=== PATIENT | female | born 1960 | race Caucasian/White ===

== ENCOUNTER 2016-12-19 13:23 | Emergency (ER) | payer OTHER ==
[~2016-12-19] VITALS: Ht 162.6 cm; Wt 63.5 kg
[2016-12-19] MEDS ORDERED: CLONAZEPAM1 M2 PO (14:09)
[2016-12-19] MEDS ORDERED: LAMOTRIGINE100 M2 PO (14:10)
[2016-12-19] MEDS ORDERED: DULOXETINE HCL60 MG PO (14:11)
[2016-12-19] MEDS ORDERED: OXCARBAZEPINE300 M1 PO (14:12)
--- NOTE | 2016-12-19 14:16 | ED GENERAL ADULT ---
History of Present Illness General Chief Complaint: Dizziness Stated Complaint: "I WAS DIZZY THIS MORNING" Source: patient, family Exam Limitations: no limitations Vital Signs & Intake/Output Vital Signs & Intake/Output Vital Signs Date Time Temp Pulse Resp B/P Pulse O2 O2 Flow FiO2 Ox Delivery Rate 12/19 1613 86 16 127/82 98 Room Air 12/19 1452 97.1 74 18 128/85 99 Room Air 12/19 1331 98.0 89 20 136/92 96 Room Air ED Intake and Output 12/20 0000 12/19 1200 Intake Total Output Total Balance Patient 140 lb Weight Allergies Coded Allergies: Sulfa (Sulfonamide Antibiotics) (UNKNOWN 12/19/16) Reconcile Medications Clonazepam 1 MG TABLET 1 TAB PO BIDP PRN ANXIETY (Reported) Duloxetine HCl 60 MG CAPSULE.DR 1 CAP PO DAILY SEIZURE (Reported) Lamotrigine 100 MG TABLET 3 TAB PO BID SEIZURE (Reported) Oxcarbazepine 300 MG TABLET 1 TAB PO BID SEIZURE (Reported) Triage Note: PT STATES SHE WAS IN THE [facility] AND THEN WAS GOING TO GO TO [place] [employer] [place] AND SHE STARTED SEEING BRIGHT LIGHT FLASHING. STATES SHE WAS DIZZY THIS MORNING BUT HER MEDICINE MAKES HER DIZZY. STATES SHE HAS HX OF SEIZURES, LAST ONE 2 WEEKS AGO.STATES SHE TOOK ALL OF HER MEDS TODAY Triage Nurses Notes Reviewed? yes Onset: Gradual Duration: minute(s): (2) Timing: recent history Injury Environment: home Severity: moderate Severity Numbers: 6 No Modifying Factors: none HPI: Patient is a 56-year-old female with history of seizure disorder presenting to the emergency department with chief complaint of a seizure this morning. She reports that she was sitting down when the seizure started. It's usually triggered by bright lights. It lasted a minute or 2 and then resolved. Per family member who was with her she was postictal for several minutes and was confused and then slowly came out of it. Right now patient feels fatigued. Denies any visual changes. No urinary incontinence. Denies any falls or head injury. She is currently living in [place], her neurologist is in [place]. They have been changing her dose of Lamictal secondary to visual changes since starting it 4 months ago. Denies any abdominal pain. No back pain. No numbness or tingling. Denies any current headaches or confusion. (PREET TAYLOR) Past History Travel History Traveled to [place] past 21 day No Medical History Any Pertinent Medical History? see below for history Neurological: EPILEPSY Psychiatric: depression Surgical History Surgical History: non-contributory Psychosocial History What is your primary language Urdu Tobacco Use: Never used ETOH Use: occasional use Illicit Drug Use: denies illicit drug use Family History Hx Contributory? No (PREET TAYLOR) Review of Systems Review of Systems Constitutional: Reports: malaise. Comments Review of systems: See HPI, All other systems negative. Constitutional, no chills fever or weight loss HEENT: No visual changes no sore throat no congestion Cardiovascular: No chest pain ,palpitation , orthopnea or ankle swelling Skin, no jaundice no rashes Respiratory: No dyspnea cough sputum or hemoptysis GI: No nausea no vomiting : No dysuria No hematuria Muscle skeletal: no back pain, no neck pain, Neurologic: No numbness no headache Psych: No stress anxiety or depression,. Heme/endocrine: No bruising no bleeding no polyuria or polydipsia Immunology: No splenectomy or history of AIDS (PREET TAYLOR) Physical Exam Physical Exam General Appearance: well developed/nourished, no apparent distress, alert, awake , comfortable Comments: Well-developed well-nourished person in no acute distress HEENT: Normal EENT exam, extraocular motion intact, no nystagmus. Pupils equally round and reactive to light and accommodation. Nose is atraumatic. External auditory canal and Tympanic membranes clear. Pharynx normal. No swelling or edema. Neck: Supple, no lymphadenopathy, normal range of motion without pain or tenderness Back: Nontender, no CVA tenderness. Full range of motion Cardiovascular: Regular rate and rhythms no murmurs rubs or gallops, normal JVP Respiratory: Chest nontender. No respiratory distress.breath sounds clear to auscultation bilaterally Abdomen: Soft, nontender nondistended, no appreciable organomegaly. Normal bowel sounds. No ascites Extremity: No edema, full range of motion of all extremities without difficulty or pain. Muscular strength is 5 out of 5 in all extremities.. Study Coordinator strength is equal and symmetric bilaterally. Neuro: Alert oriented x3, motor sensory normal, cranial nerves II through XII grossly intact. Cerebellar testing is unremarkable. Skin: No appreciable rash on exposed skin, skin is warm and dry. Psych: Mood and affect is normal, memory and judgment is normal. Core Measures ACS in differential dx? No CVA/TIA Diagnosis: No Severe Sepsis Present: No Septic Shock Present: No (PREET TAYLOR) Progress Differential Diagnoses I considered the following diagnoses in my evaluation of the patient: Seizure, medication noncompliance, dehydration, electrolyte abnormality Plan of Care: Orders Procedure Date/time Status Add-on Test (ER Only) 12/19 1458 Active Telemetry/Body Technician/Painter 12/19 143 Active URINE DRUG SCREEN FOR ER ONLY 12/19 1436 Complete URINALYSIS 12/19 1436 Complete PROLACTIN 12/19 143 Complete COMPREHENSIVE METABOLIC PANEL 12/19 143 Complete CBC WITHOUT DIFFERENTIAL 12/19 143 Complete EKG 12/19 1351 Active Laboratory Tests 12/19/16 1539: Lamotrigine Pending 12/19/16 1523: Urine Opiates Screen < 100.00, Methadone Screen 45, Barbiturate Screen < 60, Ur Phencyclidine Scrn < 6.00, Amphetamines Screen < 100, U Benzodiazepines Scrn < 85, Urine Cocaine Screen < 50, Urine Cannabis Screen < 5.00, Urine Color STRAW, Urine Clarity CLEAR, Urine pH 7.5, Ur Specific [place] 1.015, Urine Protein NEG, Urine Ketones NEG, Urine Nitrite NEG, Urine Bilirubin NEG, Urine Urobilinogen 0.2, Ur Leukocyte Esterase LARGE H, Ur Microscopic SEDIMENT EXAMINED, Urine RBC RARE, Urine WBC 1-3 H, Ur Epithelial Cells FEW, Urine Hemoglobin TRACE-INTACT, Urine Glucose NEG 12/19/16 1440: Anion Gap 11, Estimated GFR > 60, BUN/Creatinine Ratio 18.6, Glucose 86, Calcium 9.4, Total Bilirubin 0.4, AST 30, ALT 43, Alkaline Phosphatase 96, Total Protein 7.0, Albumin 4.4, Globulin 2.6, Albumin/Globulin Ratio 1.7, Prolactin 10.2, CBC w Diff NO MAN DIFF REQ, RBC 4.33, MCV 93.2, MCH 31.5 H, RDW 13.1, MPV 7.4, Gran % 64.4, Lymphocytes % 26.9, Monocytes % 6.6, Eosinophils % 1.6, Basophils % 0.5, Absolute Granulocytes 3.3, Absolute Lymphocytes 1.4, Absolute Monocytes 0.3, Absolute Eosinophils 0.1, Absolute Basophils 0, PUBS MCHC 33.8 Initial ED EKG: NSR (72 bpm) Comments: 12/19/2016 4:05:31 PM patient is well appearing in acute distress. No seizures while here in the emergency department. Vitals are stable. She'll follow up with neurology and continue medications. Discussed the Nieves Marie MD and she agrees with plan. (PREET TAYLOR) Departure Departure Disposition: HOME OR SELF CARE Condition: Stable Clinical Impression Primary Impression: Seizure Referrals: THEE SANTANA,JUSTINE LUNA MD,HEENA GREEN MD,ELIZABETH BILL MD,LYNDON (PCP/Family) Additional Instructions: Follow-up with your primary care physician call to make an appointment. Also call the number on the back of your insurance card and they will inform you of neurologists in the area that take [place]. Urine given a couple referrals here, I am unsure what insurance intake. Continue all medications as prescribed. Departure Forms: Customer Survey General Discharge Information (PREET TAYLOR) PA/SMALL ANIMAL VETERINARIAN Co-Sign Statement Statement: ED Attending supervision documentation- [X] I saw and evaluated the patient. I have also reviewed all the pertinent lab results and diagnostic results. I agree with the findings and the plan of care as documented in the PA's/SMALL ANIMAL VETERINARIAN's documentation. [X] I have reviewed the ED Record and agree with the PA's/SMALL ANIMAL VETERINARIAN's documentation. [] Additions or exceptions (if any) to the PAs/SMALL ANIMAL VETERINARIAN's note and plan are summarized below: [] (ANNALISA SANTANA,NIEVES) Critical Care Note Critical Care Note Critical Care Time: non-applicable (PREET TAYLOR)
[2016-12-19 14:51] LABS: ABSOLUTE BASOPHIL COUNT 0 /CUMM (0.0-0.2); ABSOLUTE EOSINOPHIL COUNT 0.1 /CUMM (0.0-0.7); ABSOLUTE GRANULOCYTE CT 3.3 /CUMM (1.4-6.5); ABSOLUTE LYMPH COUNT 1.4 /CUMM (1.2-3.4); ABSOLUTE MONOCYTE COUNT 0.3 /CUMM (0.10-0.60); BASOPHIL % 0.5 % (0.0-2.0); EOSINOPHIL % 1.6 % (0-5); GRANULOCYTE % 64.4 % (42.2-75.2); HEMATOCRIT 40.3 % (37-47); MEAN CORPUSCULAR HGB 31.5 PG (27.0-31.0); MEAN CORPUSCULAR HGB CONC 33.8 G/DL (33.0-37.0); MEAN CORPUSCULAR VOLUME 93.2 FL (81.0-99.0); MEAN PLATELET VOLUME 7.4 FL (7.4-10.4); PLATELET COUNT 255 /CUMM (130-400); RBC DISTRIBUTION WIDTH 13.1 % (11.5-14.5); RED BLOOD CELL CT 4.33 /CUMM (4.20-5.40); WHITE BLOOD CELL COUNT 5.1 /CUMM (4.8-10.8)
[2016-12-19 16:13] VITALS: BP 127/82
== END 2016-12-19 16:14 ==
LOC: ERH 13:23
PROVIDERS: Physician Assistant
DX: R56.9 Unspecified convulsions (principal)
CPT/HCPCS: 80299; 80307; 81001; 93005; 93010; 96374

== ENCOUNTER 2017-01-26 22:34 | Emergency (ER) | payer OTHER ==
[~2017-01-26 22:34] MED LIST: CLONAZEPAM1 M2 PO; DULOXETINE HCL60 MG PO; LAMOTRIGINE100 M2 PO; OXCARBAZEPINE300 M1 PO
--- NOTE | 2017-01-26 22:53 | ED GENERAL ADULT ---
History of Present Illness General Chief Complaint: General Adult Stated Complaint: BIBA FOR DIFF SWALLOWING Source: patient, family, EMS Exam Limitations: no limitations Vital Signs & Intake/Output Vital Signs & Intake/Output Vital Signs Date Time Temp Pulse Resp B/P Pulse O2 O2 Flow FiO2 Ox Delivery Rate 01/26 2253 98.0 80 16 98 Room Air Room Air Allergies Coded Allergies: Sulfa (Sulfonamide Antibiotics) (UNKNOWN - RASH? 01/26/17) Reconcile Medications Clonazepam 1 MG TABLET 1 TAB PO BIDP PRN ANXIETY (Reported) Duloxetine HCl 60 MG CAPSULE.DR 1 CAP PO DAILY SEIZURE (Reported) L.acidoph,Paracasei, B.lactis (Probiotic) (Unknown Strength) CAPSULE (Unknown Dose) PO DAILY PROBIOTIC (Reported) Lamotrigine 100 MG TABLET 3 TAB PO BID SEIZURE (Reported) Multivitamin (Multi-Day Vitamins) 1 EACH TABLET 1 TAB PO DAILY SUPPLEMENT ( Reported) Oxcarbazepine 300 MG TABLET 1.5 TAB PO BID SEIZURE (Reported) Vitamin B Complex & Vit C No.4 (Super B Complex) (Unknown Strength) TABLET ( Unknown Dose) PO DAILY SUPPLEMENT (Reported) Triage Nurses Notes Reviewed? yes HPI: Patient has a history of epilepsy. Patient recently started Trileptal. Ever since starting it she gets intermittent double vision. This evening the double vision started very soon after taking her Trileptal and it has not happened quickly passed and the patient became concerned. Earlier this morning the patient also had a 2 second episode of a crampy substernal chest pain. She has never had anything like that before. There is no radiation. Patient states that it felt like something grabbed her in the left go. There are no aggravating or mitigating factors. Patient became concerned because of these new symptoms so comes in for evaluation. Patient has her appointment with her neurologist next week. Past History Travel History Traveled to [place] past 21 day No Medical History Any Pertinent Medical History? see below for history Neurological: EPILEPSY Psychiatric: depression Surgical History Surgical History: non-contributory Psychosocial History What is your primary language Khmer Tobacco Use: Never used ETOH Use: denies use Illicit Drug Use: denies illicit drug use Family History Hx Contributory? No Review of Systems Review of Systems Constitutional: Reports: no symptoms. EENTM: Reports: see HPI, double vision. Respiratory: Reports: no symptoms. Cardiovascular: Reports: see HPI, chest pain. GI: Reports: no symptoms. Genitourinary: Reports: no symptoms. Musculoskeletal: Reports: no symptoms. Skin: Reports: no symptoms. Neurological/Psychological: Reports: no symptoms. Hematologic/Endocrine: Reports: no symptoms. Immunologic/Allergic: Reports: no symptoms. All Other Systems: Reviewed and Negative Physical Exam Physical Exam General Appearance: well developed/nourished, alert, awake, anxious, comfortable , mild distress Head: atraumatic, normal appearance Eyes: Bilateral: PERRL, EOMI. Ears, Nose, Throat: normal pharynx, normal ENT inspection Neck: normal inspection, supple, full range of motion Respiratory: normal breath sounds, chest non-tender, no respiratory distress, lungs clear Cardiovascular: regular rate/rhythm, normal peripheral pulses Gastrointestinal: normal bowel sounds, soft, non-tender, no organomegaly Back: normal inspection, normal range of motion Extremities: normal inspection, normal capillary refill, normal range of motion, no edema Neurologic/Psych: no motor/sensory deficits, awake, alert, oriented x 3, normal gait, normal mood/affect Skin: intact, normal color, warm/dry Lymphatic: no anterior cervical camelia Core Measures ACS in differential dx? Yes ASA ordered for poss ACS? No-ACS ruled out CVA/TIA Diagnosis: No Severe Sepsis Present: No Septic Shock Present: No Progress Differential Diagnoses I considered the following diagnoses in my evaluation of the patient: [ Medication reaction, ICH, mass, electrolyte abnormality, GA, ACS] Plan of Care: Orders Procedure Date/time Status URINALYSIS 01/26 2253 Complete TROPONIN LEVEL 01/26 2253 Complete LIPASE 01/26 2253 Complete COMPREHENSIVE METABOLIC PANEL 01/26 2253 Complete CBC WITHOUT DIFFERENTIAL 01/26 2253 Complete AMYLASE 01/26 2253 Complete EKG 01/26 2253 Active Laboratory Tests 01/26/17 2316: Urinalysis MOD H, Urine Color YEL, Urine Clarity HAZY H, Urine pH 8.0, Ur Specific [place] 1.015, Urine Protein NEG, Urine Ketones TRACE H, Urine Nitrite NEG, Urine Bilirubin NEG, Urine Urobilinogen 0.2, Ur Leukocyte Esterase LARGE H , Ur Microscopic SEDIMENT EXAMINED, Urine RBC RARE, Urine WBC 15-25 H, Ur Epithelial Cells MOD H, Urine Bacteria MOD H, Urine Mucus FEW, Urine Hemoglobin NEG, Urine Glucose NEG 01/26/17 2311: Anion Gap 11, Estimated GFR > 60, BUN/Creatinine Ratio 16.7, Glucose 95, Calcium 9.6, Total Bilirubin 0.6, AST 30, ALT 34, Alkaline Phosphatase 104, Troponin I < 0.01, Total Protein 6.9, Albumin 4.4, Globulin 2.5, Albumin/Globulin Ratio 1.8, Amylase 39, Lipase 75, CBC w Diff NO MAN DIFF REQ, RBC 4.48, MCV 92.1, MCH 31.0, RDW 12.5, MPV 6.9 L, Gran % 52.4, Lymphocytes % 36.6, Monocytes % 7.9, Eosinophils % 2.4, Basophils % 0.7, Absolute Granulocytes 2.9, Absolute Lymphocytes 2.0, Absolute Monocytes 0.4, Absolute Eosinophils 0.1, Absolute Basophils 0, PUBS MCHC 33.6 Diagnostic Imaging: Viewed by Me: CT Scan. Discussed w/RAD: CT Scan. Radiology Impression: PATIENT: JUANIS MICHEL PRESENT AGE: 56 PATIENT ACCOUNT NO: [id number] : 60 LOCATION: [facility] ORDERING PHYSICIAN: KAILA ARREDONDO MD SERVICE DATE: 01/26/17 EXAM TYPE: CAT - CT HEAD WO IV CONTRAST EXAMINATION: CT HEAD WITHOUT CONTRAST CLINICAL INFORMATION: Epilepsy. COMPARISON: No relevant prior imaging available. TECHNIQUE: Contiguous axial imaging was performed from the skull base to vertex without intravenous administration of contrast. DLP: 529.16 mGy-cm FINDINGS: There is no acute intracranial hemorrhage or abnormal extra-axial collection. No intracranial mass effect or midline shift. Lateral and third ventricles are normal. No hydrocephalus. Forrest-white matter differentiation is preserved and there is no evidence of acute territorial infarct. The calvarium and skull base are intact. Mastoid air cells and middle ear cavities are well aerated. Visualized paranasal sinuses are well-aerated. Globes and orbits are grossly symmetric. IMPRESSION: Unremarkable CT scan of the head. DICTATED BY: GIGI ALANIZ MD DATE/TIME DICTATED:01/26/172318 NURSE ESTHETICIAN:TYLER DATE/ TIME TRANSCRIBED:01/26/172318 CONFIDENTIAL, DO NOT COPY WITHOUT APPROPRIATE AUTHORIZATION. <Electronically signed in Other Vendor System> SIGNED BY: GIGI ALANIZ MD 01/26/17 8400 Initial ED EKG: NSR, no ST T wave changes Prior EKG: unchanged Departure Departure Disposition: HOME OR SELF CARE Condition: Stable Clinical Impression Primary Impression: Medication reaction Referrals: LYNDON BILL MD (PCP/Family) Additional Instructions: FOLLOW UP WITH YOUR NEUROLOGIST AT [facility] IF SYMPTOMS WORSEN OR FOR ANY CONCERNS Departure Forms: Customer Survey General Discharge Information Critical Care Note Critical Care Note Critical Care Time: non-applicable
[2017-01-26] MEDS ORDERED: MULTI-DAY VITA1 EACH PO (22:56)
[2017-01-26] MEDS ORDERED: PROBIOTIC1 EAC4 PO (22:57)
[2017-01-26] MEDS ORDERED: SUPER B COMPLE150 MG PO (22:57)
[2017-01-26 23:18] LABS: ABSOLUTE BASOPHIL COUNT 0 /CUMM (0.0-0.2); ABSOLUTE EOSINOPHIL COUNT 0.1 /CUMM (0.0-0.7); ABSOLUTE GRANULOCYTE CT 2.9 /CUMM (1.4-6.5); ABSOLUTE MONOCYTE COUNT 0.4 /CUMM (0.10-0.60); BASOPHIL % 0.7 % (0.0-2.0); EOSINOPHIL % 2.4 % (0-5); GRANULOCYTE % 52.4 % (42.2-75.2); HEMATOCRIT 41.3 % (37-47); MEAN CORPUSCULAR HGB CONC 33.6 G/DL (33.0-37.0); MEAN CORPUSCULAR VOLUME 92.1 FL (81.0-99.0); MEAN PLATELET VOLUME 6.9 FL (7.4-10.4); PLATELET COUNT 237 /CUMM (130-400); RBC DISTRIBUTION WIDTH 12.5 % (11.5-14.5); RED BLOOD CELL CT 4.48 /CUMM (4.20-5.40); WHITE BLOOD CELL COUNT 5.6 /CUMM (4.8-10.8)
--- NOTE | 2017-01-26 23:26 | CT SCAN REPORT ---
EXAMINATION: CT HEAD WITHOUT CONTRAST CLINICAL INFORMATION: Epilepsy. COMPARISON: No relevant prior imaging available. TECHNIQUE: Contiguous axial imaging was performed from the skull base to vertex without intravenous administration of contrast. DLP: 529.16 mGy-cm FINDINGS: There is no acute intracranial hemorrhage or abnormal extra-axial collection. No intracranial mass effect or midline shift. Lateral and third ventricles are normal. No hydrocephalus. Forrest-white matter differentiation is preserved and there is no evidence of acute territorial infarct. The calvarium and skull base are intact. Mastoid air cells and middle ear cavities are well aerated. Visualized paranasal sinuses are well-aerated. Globes and orbits are grossly symmetric. IMPRESSION: Unremarkable CT scan of the head.
[2017-01-27 00:02] VITALS: BP 142/89
== END 2017-01-27 00:05 ==
LOC: ERH 22:34
PROVIDERS: Emergency Medicine
DX: T50.995A Adverse effect of other drugs, medicaments and biological substances, initial encounter (principal); R07.89 Other chest pain
CPT/HCPCS: 81001; 93005; 93010

== ENCOUNTER 2018-01-28 16:48 | Inpatient (IN) | payer OTHER ==
[~2018-01-28] VITALS: Ht 157.5 cm; Wt 62.7 kg
[~2018-01-28 16:48] MED LIST changes: +MULTI-DAY PLUS1 EAC1 PO; +PROBIOTIC1 EAC4 PO; +SUPER B COMPLE150 MG PO
--- NOTE | 2018-01-28 17:02 | ED PSY CRISIS COLLATERAL NOTE ---
Collateral Note Collateral Note Family/Inform/Cristo Contacts: Dr. Monterroso called crisis office from OPS reported she is sending pt to E.D who is voluntary. Pt is gravely disabled with passive SI+ and thinks she will require inpatient hospitalization .
--- NOTE | 2018-01-28 17:06 | ED PSYCHIATRIC COMPLAINT ---
History of Present Illness General Chief Complaint: Psychiatric Related Complaint Stated Complaint: BIBA +SI Source: patient Exam Limitations: no limitations Vital Signs & Intake/Output Vital Signs & Intake/Output Vital Signs Date Time Temp Pulse Resp B/P B/P Pulse O2 O2 Flow FiO2 Mean Ox Delivery Rate 01/28 1718 Room Air Room Air 01/28 1718 98.1 76 15 136/77 98 Room Air Room Air Allergies Coded Allergies: [facility]) (Severe, +SI ATTEMPT 01/28/18) Sulfa (Sulfonamide Antibiotics) (UNKNOWN - RASH? 01/28/18) Reconcile Medications Clonazepam 1 MG TABLET 1 TAB PO BIDP PRN ANXIETY (Reported) Duloxetine HCl 60 MG CAPSULE.DR 1 CAP PO DAILY SEIZURE (Reported) L.acidoph,Paracasei, B.lactis (Probiotic) (Unknown Strength) CAPSULE (Unknown Dose) PO DAILY PROBIOTIC (Reported) Lamotrigine 100 MG TABLET 3 TAB PO BID SEIZURE (Reported) Multivitamin (Multi-Day Vitamins) 1 EACH TABLET 1 TAB PO DAILY SUPPLEMENT ( Reported) Oxcarbazepine 300 MG TABLET 1.5 TAB PO BID SEIZURE (Reported) Vitamin B Complex & Vit C No.4 (Super B Complex) (Unknown Strength) TABLET ( Unknown Dose) PO DAILY SUPPLEMENT (Reported) Triage Nurses Notes Reviewed? yes Onset: Abrupt Duration: day(s): Timing: recent history Severity: moderate, severe HPI: 57-year-old female comes into the emergency room for feeling depressed. Patient reports that she has a history of suicidal attempts in the past. She's been feeling suicidal and depressed. She lives up here currently with her mother. She is . She was for 32 years. She reports that she found out sometime in regards to her ex- about 2 years ago and since then she's been increasingly depressed but will not tell me what it is specifically. She denies any alcohol or drug use. She sleeps all day. She has no desire to do anything. She feels hopeless. She has no incentives. She reports that someone could come and milind her house and she wouldn't even care. (Isaiah UPTON,Jeremy) Past History Travel History Traveled to [place] past 21 day No Medical History Any Pertinent Medical History? see below for history Neurological: EPILEPSY EENT: NONE Cardiovascular: NONE Respiratory: NONE Gastrointestinal: NONE Hepatic: NONE Renal: NONE Musculoskeletal: NONE Psychiatric: depression Endocrine: NONE Blood Disorders: NONE Cancer(s): NONE DRILLING FLUIDS SPECIALIST/Reproductive: NONE Isolation History: Standard Surgical History Surgical History: non-contributory Psychosocial History What is your primary language Turkish Tobacco Use: Never used ETOH Use: occasional use Illicit Drug Use: denies illicit drug use Family History Hx Contributory? No (Jeremy Hurtado) Review of Systems Review of Systems Constitutional: Reports: no symptoms. EENTM: Reports: no symptoms. Respiratory: Reports: no symptoms. Cardiovascular: Reports: no symptoms. GI: Reports: no symptoms. Genitourinary: Reports: no symptoms. Musculoskeletal: Reports: no symptoms. Skin: Reports: no symptoms. Neurological/Psychological: Reports: see HPI. Hematologic/Endocrine: Reports: no symptoms. Immunologic/Allergic: Reports: no symptoms. All Other Systems: Reviewed and Negative (Jeremy Hurtado) Physical Exam Physical Exam General Appearance: well developed/nourished, mild distress Head: atraumatic Eyes: Bilateral: normal appearance. Ears, Nose, Throat: normal ENT inspection, hearing grossly normal Neck: normal inspection Respiratory: no respiratory distress Cardiovascular: regular rate/rhythm Extremities: normal range of motion Neurological/Psychiatric: depressed affect Appearance/Memory/Insight: appropriate appearance Behavoir/Eye Contact/Speech: cooperative Thoughts/Hallucinations: no apparent hallucination Skin: intact, normal color, warm/dry SAD PERSONS SAD PERSONS Response Value Age <19 or >45 years? yes 1 Depression/Hopelessness? yes 2 Previous Attempts/Psych Care yes 1 Rational Thinking Loss? yes 2 Single//? yes 1 Social Support? has no support 1 Total 8 SAD PERSONS Done? yes (Jeremy Hurtado) Progress Differential Diagnosis: dementia, drug intoxication, drug overdose, drug withdrawal, depression, bipolar, Plan of Care: Orders Procedure Date/time Status Regular Diet 01/29 B Active Admit to inpatient psych 01/28 1910 Active Continuous Observation Monitor 01/29 1652 Active URINE DRUGS OF ABUSE 01/28 165 Complete ETHANOL 01/28 165 Complete COMPREHENSIVE METABOLIC PANEL 01/29 1652 Complete CBC WITHOUT DIFFERENTIAL 01/29 1652 Complete Laboratory Tests 01/28/18 1756: Urine Opiates Screen < 100, Methadone Screen 42, Barbiturate Screen < 60, Ur Phencyclidine Scrn < 6.00, Amphetamines Screen < 100, U Benzodiazepines Scrn 770 H, Urine Cocaine Screen < 50, Urine Cannabis Screen < 5.00 01/28/18 1739: Anion Gap 13, Estimated GFR > 60, BUN/Creatinine Ratio 15.0, Glucose 92, Calcium 9.9, Total Bilirubin 0.4, AST 24, ALT 34, Alkaline Phosphatase 98, Total Protein 7.1, Albumin 4.4, Globulin 2.7, Albumin/Globulin Ratio 1.6, CBC w Diff NO MAN DIFF REQ, RBC 4.38, MCV 92.5, MCH 31.5 H, MCHC 34.1, RDW 13.0, MPV 7.8, Gran % 59.5, Lymphocytes % 30.9, Monocytes % 7.1, Eosinophils % 2.0, Basophils % 0.5, Absolute Granulocytes 3.1, Absolute Lymphocytes 1.6, Absolute Monocytes 0.4, Absolute Eosinophils 0.1, Absolute Basophils 0, Serum Alcohol < 10.0 (Jeremy Hurtado) Departure Departure Disposition: STILL A PATIENT Condition: Stable Clinical Impression Primary Impression: Major depression Referrals: Paula Velarde DO (PCP/Family) Departure Forms: Customer Survey General Discharge Information Psych Admission Note Psychiatric Admission: I have seen and evaluated JUANIS MICHEL. I have also reviewed all the pertinent lab results and diagnostic results. JUANIS MICHEL will be admitted to our inpatient Psychiatric unit for treatment and care. (Jeremy Hurtado) PA/HANDLE SEWER Co-Sign Statement Statement: ED Attending supervision documentation- [X] I saw and evaluated the patient. I have also reviewed all the pertinent lab results and diagnostic results. I agree with the findings and the plan of care as documented in the PA's/HANDLE SEWER's documentation. [X] I have reviewed the ED Record and agree with the PA's/HANDLE SEWER's documentation. [] Additions or exceptions (if any) to the PAs/HANDLE SEWER's note and plan are summarized below: [Patient to be admitted to Inpatient Psychiatry for inpatient psychiatric treatment.] (Jahaira SANTANA,Patrice Jeronimo)
[2018-01-28 17:56] LABS: ABSOLUTE BASOPHIL COUNT 0 /CUMM (0.0-0.2); ABSOLUTE EOSINOPHIL COUNT 0.1 /CUMM (0.0-0.7); ABSOLUTE GRANULOCYTE CT 3.1 /CUMM (1.4-6.5); ABSOLUTE LYMPH COUNT 1.6 /CUMM (1.2-3.4); ABSOLUTE MONOCYTE COUNT 0.4 /CUMM (0.10-0.60); BASOPHIL % 0.5 % (0.0-2.0); GRANULOCYTE % 59.5 % (42.2-75.2); HEMATOCRIT 40.5 % (37-47); MEAN CORPUSCULAR HGB 31.5 PG (27.0-31.0); MEAN CORPUSCULAR HGB CONC 34.1 G/DL (33.0-37.0); MEAN CORPUSCULAR VOLUME 92.5 FL (81.0-99.0); MEAN PLATELET VOLUME 7.8 FL (7.4-10.4); PLATELET COUNT 264 /CUMM (130-400); RED BLOOD CELL CT 4.38 /CUMM (4.20-5.40); WHITE BLOOD CELL COUNT 5.2 /CUMM (4.8-10.8)
--- NOTE | 2018-01-28 19:25 | ED PSYCH CRISIS CONSULTATION ---
See Addendum Crisis Consult Basic Assessment Date of Consult: 01/28/18 Responsible Person/Accompanied By: Sent to the ED by Dr. Monterroso Insurance Authorization: Insurance #1: Insurance name: MANOHAR DUGAN Phone number: Policy number: [id number] Group number: Authorization number: ED Provider: Patient's ED Provider: Jeremy Hurtado Primary Care Physician: Patient's PCP: Paula Velarde DO PCP's Current Psychiatrist: Yessica Monterroso MD Chief Complaint: Psychiatric Related Complaint Patient's Quote: "Basically, I feel like a lost soul." Present Illness: The patient is a 57 year old, ( but ), female presenting to the ED on the recommendation of her OP Psychiatrist Dr. Monterroso. The patient presents with depressed mood and flat affect. She has been feeling depressed, anxious, helpless, hopeless, worthless and useless. She rates her depression a 10 out of 10 and anxiety a 7 out of 10, 10 being the most severe. She denies any current HI. She does endorse a new onset of +AH and +VH, noting she has been hearing her name being called and the other day believed that she saw a man, standing over her bed. She has been feeling suicidal, however does not have a plan. When asked about intent she states that "she does not care and if she could make it easy," she would do it. She has one previous suicide attempt in 2016, in which she drank wine and took an overdose. She reports that she has been praying to God to take her, to be with her father. She has had an increase in sleep and has been staying in bed all day long. She has had a decrease in appetite and has lost weight, however is not clear how much weight she has lost. She has been [facility], first with Dr. Lopez and currently with Dr. Monterroso. She believes that her symptoms have been increasingly worse and treatment does not seem to be working. She reports that her primary stressor is being from her , after he disclosed that he is crooks, after 32 years of marriage. She has been living back and forth between [place] and [place], noting she is only in [place], because she needs her Medicaid to get her Epilepsy medication. It is not clear, why she is not able to obtain state insurance in [place]. She is currently staying with her mother and assists in her care-taking. She has one son and one daughter, both of which reside in [place]. She has been on Disability since 2016, for her mental health issues and her Epilepsy. 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 She is extremely embarrassed re: her current situation. She is motivated for treatment and is willing to sign into the hospital, if that is the recommendation of Dr. Monterroso. Collateral was obtained from DR. Monterroso, please see separate collateral note. Patient's Address: [address] [place] [address] Other Family/Informants Interviewed: See separate collateral note from Dr. Monterroso Allergies - Coded Allergies: levetiracetam (From [facility]) (Severe, +SI ATTEMPT 01/28/18) Sulfa (Sulfonamide Antibiotics) (UNKNOWN - RASH? 01/28/18) Current Medications - Scheduled Medications Clobazam (ONFI) 10 MG TABLET 1.5 TAB PO QAM SEIZURES #105 (Reported) Entered as Reported by Leonila Nieves on 01/28/18 193 Clobazam (ONFI) 10 MG TABLET 2 TAB PO QPM SEIZURES (Reported) Entered as Reported by Leonila Nieves on 01/28/18 193 Duloxetine HCl 60 MG CAPSULE. 1 CAP PO QPM UNKNOWN #90 (Reported) Entered as Reported by Barbi Hermosillo on 12/19/16 1411 Last Taken: 01/27/18 Fluoxetine HCl (Prozac) 10 MG CAPSULE 1 CAP PO QAM MENTAL HEALTH #30 ( Reported) Entered as Reported by Leonila Nieves on 01/28/18 193 L.acidoph,Paracasei, B.lactis (Probiotic) (Unknown Strength) CAPSULE (Unknown Dose) PO QAM PROBIOTIC (Reported) Entered as Reported by Leonila Nieves on 01/26/17 2257 Last Taken: Unknown Dose on 01/28/18 0900 Lamotrigine 100 MG TABLET 3 TAB PO BID SEIZURE #180 (Reported) Entered as Reported by Barbi Hermosillo on 12/19/16 1410 Last Taken: 01/28/18 0900 Multivitamin-Min/Iron/FA/Vit K (Multi-Day Plus Minerals Tablet) 18 MG IRON-400 MCG-25 MCG TABLET 1 TAB PO DAILY SUPPLEMENT (Reported) Entered as Reported by Leonila Nieves on 01/26/17 2256 Scheduled PRN Medications Clonazepam 1 MG TABLET 1 TAB PO BIDP PRN ANXIETY #60 (Reported) Entered as Reported by Barbi Hermosillo on 12/19/16 1409 Last Taken: 01/28/18 0900 Laboratory Results: Laboratory Tests 01/28/18 1756: Urine Opiates Screen < 100, Methadone Screen 42, Barbiturate Screen < 60, Ur Phencyclidine Scrn < 6.00, Amphetamines Screen < 100, U Benzodiazepines Scrn 770 H, Urine Cocaine Screen < 50, Urine Cannabis Screen < 5.00 01/28/18 1739: Anion Gap 13, Estimated GFR > 60, BUN/Creatinine Ratio 15.0, Glucose 92, Calcium 9.9, Total Bilirubin 0.4, AST 24, ALT 34, Alkaline Phosphatase 98, Total Protein 7.1, Albumin 4.4, Globulin 2.7, Albumin/Globulin Ratio 1.6, CBC w Diff NO MAN DIFF REQ, RBC 4.38, MCV 92.5, MCH 31.5 H, MCHC 34.1, RDW 13.0, MPV 7.8, Gran % 59.5, Lymphocytes % 30.9, Monocytes % 7.1, Eosinophils % 2.0, Basophils % 0.5, Absolute Granulocytes 3.1, Absolute Lymphocytes 1.6, Absolute Monocytes 0.4, Absolute Eosinophils 0.1, Absolute Basophils 0, Serum Alcohol < 10.0 Past History Past Medical History Neurological: EPILEPSY EENT: NONE Cardiovascular: NONE Respiratory: NONE Gastrointestinal: NONE Hepatic: NONE Renal: NONE Musculoskeletal: NONE Psychiatric: depression Endocrine: NONE Blood Disorders: NONE Cancer(s): NONE 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 Physical Limitations (Interventions): She has Epilepsy and requires her medications to prevent seizures. Psychiatric Treatment History Psych Treatment Psychiatric Treatment Yes Inpatient Treatment Yes Outpatient Treatment Yes Location of Treatment [facility] and 1 IP admission in [place] in 2016. Reason for Treatment Suicide attempt, depression and anxiety Dates of Treatment 2016 was last IP treatment and she is current with [facility]. Response to Treatment She states that despite treatment that her symptoms are getting worse. Diagnosis by History: Unknown Substance Use/Abuse History Drug Use/Abuse Substances Used/Abused No First Use N/A Last Used N/A How much used/taken N/A How often N/A For how long N/A Route of use N/A Substance Abuse Treatment Substance Abuse Treatment Past Substance Abuse [place] No Inpatient Treatment No Outpatient Treatment No Location of Treatment N/A Reason for Treatment N/A Dates of Treatment N/A Response to Treatment N/A Comments: N/A Current Mental Status Mental Status Orientation: Person, Place, Situation Affect: Depressed, Flat, Sad Speech: WNL Neuro-vegetative: Anhedonia, Appetite Decreased, Concentration Poor, Helpless, Sleep Disturbance, Feeling worthless, shame, useless and hopeless. Appearance Appearance- Dress/Hygiene: The patient was sitting in bed, in hospital attire, neat clean and well groomed. Behaviors Thought Process: WNL Thought Content: Auditory Hallucinations, Visual Hallucinations, She states that she recently heard someone calling her name and believed that she saw someone standing behind her bed. Memory: Impaired (she states she has been forget) Insight: WNL SI/HI Risk Assessment Past Suicidal Ideation/Attempts Yes Current Suicidal Ideation/Att Yes Past Homicidal Ideation/Att: No Current Homicidal Ideation/Attempts No Degree of Intent: She reports one previous suicide attmept, in which she drank alcohol and took an OD in 2016., She states that she has been praying to God to take her to be with her father. She reports that she does not care and if she could make it easy, she would. Danger To: Self Risk Factors: chronic/serious med cond., high anxiety/distress, history of suicide atmpts, SA/MH hospitalized, lack of outcome concern, limited support Lethality Ratin PTSD Checklist PTSD Done? patient declined (Pt. denies trauma or abuse hx.) ED Management Sitter: Yes Restraints: No DSM5/PS Stressors/Medical Prob Diagnosis' (DSM 5, Stressors, Medical): F32.9 Unspecified Depressive Disorder F41.9 Unspecified Anxiety Disorder Medical: Epilepsy Stressors: Marital discord, unemployment-Disability, insurance issues Current GAF: 25 Comments: N/A Departure Disposition Psych Medical Clearance Date: 01/28/18 Medically Cleared at: 1830 Time Started: 1829 Time Ended: 1929 Psychiatrist Consulted: Yessica Monterroso MD Date Disposition Established: 01/28/18 Time Disposition Established: 1929 Plan for Disposition - Modality: Inpatient Psychiatry Facility: [facility] Contact: N/A Telephone: N/A Rationale for Disposition: The patient presents with worsening symptoms of depression and anxiety. She has been feeling helpless, hopeless, worthless, useless and suicidal. She has been having suicidal ideations and has one previous suicide attempt. She has new onset +VH and +AH. The case was discussed with Dr. Monterroso and the patient will be a voluntary admit to [facility]. Type of IP Admission: Voluntary Additional Instructions: N/A Referrals Paula Velarde DO (PCP/Family)
[2018-01-28] MEDS ORDERED: PROZAC10 M1 PO (19:35)
[2018-01-28] MEDS ORDERED: ONFI10 M1 PO ×2 (19:37→19:38)
--- NOTE | 2018-01-28 20:16 | IP CRISIS DIAG ASSESS PSYCH ---
Diagnostic Assessment Basic Assessment Insurance Authorization: Insurance #1: Insurance name: MANOHAR DUGAN Phone number: Policy number: [id number] Group number: Authorization number: Prior Authorization was requested through the online [facility] portal and is listed as "pended." Pended Authorization # [id number] Client Authorization # [id number] Type of Request INITIAL Primary Care Physician: Patient's PCP: Paula Velarde DO PCP's Patient's Quote: "Basically, I feel like a lost soul." Present Illness: The patient is a 57 year old, ( but ), female presenting to the ED on the recommendation of her OP Psychiatrist Dr. Monterroso. The patient presents with depressed mood and flat affect. She has been feeling depressed, anxious, helpless, hopeless, worthless and useless. She rates her depression a 10 out of 10 and anxiety a 7 out of 10, 10 being the most severe. She denies any current HI. She does endorse a new onset of +AH and +VH, noting she has been hearing her name being called and the other day believed that she saw a man, standing over her bed. She has been feeling suicidal, however does not have a plan. When asked about intent she states that "she does not care and if she could make it easy," she would do it. She has one previous suicide attempt in 2016, in which she drank wine and took an overdose. She reports that she has been praying to God to take her, to be with her father. She has had an increase in sleep and has been staying in bed all day long. She has had a decrease in appetite and has lost weight, however is not clear how much weight she has lost. She has been attending [facility], first with Dr. Lopez and currently with Dr. Monterroso. She believes that her symptoms have been increasingly worse and treatment does not seem to be working. She reports that her primary stressor is being from her , after he disclosed that he is crooks, after 32 years of marriage. She has been living back and forth between [place] and [place], noting she is only in [place], because she needs her Medicaid to get her Epilepsy medication. It is not clear, why she is not able to obtain state insurance in [place]. She is currently staying with her mother and assists in her care-taking. She has one son and one daughter, both of which reside in [place]. She has been on Disability since 2016, for her mental health issues and her Epilepsy. 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 She is extremely embarrassed re: her current situation. She is motivated for treatment and is willing to sign into the hospital, if that is the recommendation of Dr. Monterroso. Collateral was obtained from DR. Monterroso, please see separate collateral note. Patient's Address: [address] [place] [address] Other Who Do You Live With? Mother Feel Safe Where You Live? Yes Feel Safe in Your Relationship No If No, Please Elaborate: The patient states that she is still , however from her . She denies any other current relationship. Marital Status: (But ) Do You Have Children? Yes Ages? 2 adult children Primary Language? Belarusian Family/Informants Interviewed: See separate collateral note from Dr. Monterroso Allergies - Coded Allergies: levetiracetam (From [facility]) (Severe, +SI ATTEMPT 01/28/18) Sulfa (Sulfonamide Antibiotics) (UNKNOWN - RASH? 01/28/18) Current Medications - Scheduled Medications Clobazam (ONFI) 10 MG TABLET 1.5 TAB PO QAM SEIZURES #105 (Reported) Entered as Reported by Leonila Nieves on 01/28/18 193 Clobazam (ONFI) 10 MG TABLET 2 TAB PO QPM SEIZURES (Reported) Entered as Reported by Leonila Nieves on 01/28/18 1938 Duloxetine HCl 60 MG CAPSULE. 1 CAP PO QPM UNKNOWN #90 (Reported) Entered as Reported by Barbi Hermosillo on 12/19/16 1411 Last Taken: 01/27/18 Fluoxetine HCl (Prozac) 10 MG CAPSULE 1 CAP PO QAM MENTAL HEALTH #30 ( Reported) Entered as Reported by Leonila Nieves on 01/28/18 1935 L.acidoph,Paracasei, B.lactis (Probiotic) (Unknown Strength) CAPSULE (Unknown Dose) PO QAM PROBIOTIC (Reported) Entered as Reported by Leonila Nieves on 01/26/17 2257 Last Taken: Unknown Dose on 01/28/18 0900 Lamotrigine 100 MG TABLET 3 TAB PO BID SEIZURE #180 (Reported) Entered as Reported by Barbi Hermosillo on 12/19/16 1410 Last Taken: 01/28/18 0900 Multivitamin-Min/Iron/FA/Vit K (Multi-Day Plus Minerals Tablet) 18 MG IRON-400 MCG-25 MCG TABLET 1 TAB PO DAILY SUPPLEMENT (Reported) Entered as Reported by Leonila Nieves on 01/26/17 2256 Scheduled PRN Medications Clonazepam 1 MG TABLET 1 TAB PO BIDP PRN ANXIETY #60 (Reported) Entered as Reported by Barbi Hermosillo on 12/19/16 1409 Last Taken: 01/28/18 0900 Consequences of Psych Med Use: N/A Comment: N/A Lab Results: Laboratory Tests 01/28/18 1756: Urine Opiates Screen < 100, Methadone Screen 42, Barbiturate Screen < 60, Ur Phencyclidine Scrn < 6.00, Amphetamines Screen < 100, U Benzodiazepines Scrn 770 H, Urine Cocaine Screen < 50, Urine Cannabis Screen < 5.00 01/28/18 1739: Anion Gap 13, Estimated GFR > 60, BUN/Creatinine Ratio 15.0, Glucose 92, Calcium 9.9, Total Bilirubin 0.4, AST 24, ALT 34, Alkaline Phosphatase 98, Total Protein 7.1, Albumin 4.4, Globulin 2.7, Albumin/Globulin Ratio 1.6, CBC w Diff NO MAN DIFF REQ, RBC 4.38, MCV 92.5, MCH 31.5 H, MCHC 34.1, RDW 13.0, MPV 7.8, Gran % 59.5, Lymphocytes % 30.9, Monocytes % 7.1, Eosinophils % 2.0, Basophils % 0.5, Absolute Granulocytes 3.1, Absolute Lymphocytes 1.6, Absolute Monocytes 0.4, Absolute Eosinophils 0.1, Absolute Basophils 0, Serum Alcohol < 10.0 Toxicology Screen Completed? Yes Results: positive (Benzodiazepines) Symptoms of Use: N/A Past History Past Medical History Medical History: Epilepsy Past Surgical History Surgical History TUBAL LIGATION TONSILLECTOMY Abuse/Trauma History Trauma History/Current Trauma: Denies Legal History Current Legal Status: none (Pt. denies) Have you ever been arrested? No Number of Arrests: [address] Dates: N/A Workday Director N/A Psychosocial History Strengths/Capabilities: The patient appears to have a supportive family. Physical Limitations (Interventions): She has Epilepsy and requires her medications to prevent seizures. Psychiatric Treatment History Psych Treatment Psychiatric Treatment Yes Inpatient Treatment Yes Outpatient Treatment Yes Location of Treatment [facility] and 1 IP admission in [place] in 2016. Reason for Treatment Suicide attempt, depression and anxiety Dates of Treatment 2016 was last IP treatment and she is current with [facility]. Response to Treatment She states that despite treatment that her symptoms are getting worse. Diagnosis by History: Unknown Risk Factors: chronic/serious med cond., high anxiety/distress, history of suicide atmpts, SA/MH hospitalized, lack of outcome concern, limited support Substance Use/Abuse History Drug Use/Abuse minimum 12mo Hx Substances Used/Abused No First Use N/A Last Used N/A How much used/taken N/A How often N/A For how long N/A Route of use N/A Substance Abuse Treatment Substance Abuse Treatment Past Substance Abuse [place] No Inpatient Treatment No Outpatient Treatment No Location of Treatment N/A Reason for Treatment N/A Dates of Treatment N/A Response to Treatment N/A Comments: N/A Sexual History Sexual Concerns: None noted Education History Highest Level of Education: high school/GED Preferred Learning Style: Unknown Current Mental Status Mental Status Orientation: Person, Place, Situation Affect: Depressed, Flat, Sad Speech: WNL Neuro-vegetative: Anhedonia, Appetite Decreased, Concentration Poor, Helpless, Sleep Disturbance, Feeling worthless, shame, useless and hopeless. Appearance Appearance- Dress/Hygiene: The patient was sitting in bed, in hospital attire, neat clean and well groomed. Behaviors Thought Process: WNL Thought Content: Auditory Hallucinations, Visual Hallucinations, She states that she recently heard someone calling her name and believed that she saw someone standing behind her bed. Memory: Impaired (she states she has been forget) Insight: WNL SI/HI Risk Assessment - Minimum 6mo History- Past Suicidal Ideation/Attempts Yes Current Suicidal Ideation/Att Yes Past Homicidal Ideation/Att: No Current Homicidal Ideation/Attempts No Degree of Intent: She reports one previous suicide attmept, in which she drank alcohol and took an OD in 2016. She states that she has been praying to God to take her to be with her father. She reports that she does not care and if she could make it easy, she would. Danger To: Self Gravely Disabled: N/A Risk Factors: chronic/serious med cond., high anxiety/distress, history of suicide atmpts, SA/MH hospitalized, lack of outcome concern, limited support Lethality Ratin Needs/Init TX Plan/Goals: Admit to the inpatient unit for symptom stability and safety. Work with provider on medication managment. Work with treatment team on transition back to care in the community. Attend group, individual and family sessions. AUDIT-C Questionnaire: AUDIT-C Questionnaire: Response Value ETOH use in the past year Never 0 # drinks typical/day Doesn't Drink 0 6 or > drinks per occasion Never 0 Total 0 DSM5/PS Stressors/Medical Prob Diagnosis' (DSM 5, Stressors, Medical): F32.9 Unspecified Depressive Disorder F41.9 Unspecified Anxiety Disorder Medical: Epilepsy Stressors: Marital discord, unemployment-Disability, insurance issues Current GAF: 25 Comments: N/A
--- NOTE | 2018-01-28 20:27 | SOCIAL WORKER SOCIAL HX PSYCH ---
Social History Basic Assessment Insurance Authorization: Insurance #1: Insurance name: MANOHAR DUGAN Phone number: Policy number: [id number] Group number: Authorization number: Curr Source of Income/Entitlements: SSDI Primary Care Physician: Patient's PCP: Paula Velarde DO PCP's Present Problem: The patient is a 57 year old, ( but ), female presenting to the ED on the recommendation of her OP Psychiatrist Dr. Monterroso. The patient presents with depressed mood and flat affect. She has been feeling depressed, anxious, helpless, hopeless, worthless and useless. She rates her depression a 10 out of 10 and anxiety a 7 out of 10, 10 being the most severe. She denies any current HI. She does endorse a new onset of +AH and +VH, noting she has been hearing her name being called and the other day believed that she saw a man, standing over her bed. She has been feeling suicidal, however does not have a plan. When asked about intent she states that "she does not care and if she could make it easy," she would do it. She has one previous suicide attempt in 2016, in which she drank wine and took an overdose. She reports that she has been praying to God to take her, to be with her father. She has had an increase in sleep and has been staying in bed all day long. She has had a decrease in appetite and has lost weight, however is not clear how much weight she has lost. She has [facility], first with Dr. Lopez and currently with Dr. Monterroso. She believes that her symptoms have been increasingly worse and treatment does not seem to be working. She reports that her primary stressor is being from her , after he disclosed that he is crooks, after 32 years of marriage. She has been living back and forth between [place] and [place], noting she is only in [place], because she needs her Medicaid to get her Epilepsy medication. It is not clear, why she is not able to obtain state insurance in [place]. She is currently staying with her mother and assists in her care-taking. She has one son and one daughter, both of which reside in [place]. She has been on Disability since 2016, for her mental health issues and her Epilepsy. 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 She is extremely embarrassed re: her current situation. She is motivated for treatment and is willing to sign into the hospital, if that is the recommendation of Dr. Monterroso. Primary Language? Tajik Living Situation Other Living Arrangement: relative's/guardian's byron (Mothers home) Residential Care/Treatment Fac N/A Feel Safe Where You Are Living Yes Feel Safe in Relationships? No Comments: She is currently , however from her . She denies that she is in any other relationship. Allergies - Coded Allergies: levetiracetam (From [facility]) (Severe, +SI ATTEMPT 01/28/18) Sulfa (Sulfonamide Antibiotics) (UNKNOWN - RASH? 01/28/18) Current Medications - Scheduled Medications Clobazam (ONFI) 10 MG TABLET 1.5 TAB PO QAM SEIZURES #105 (Reported) Entered as Reported by Leonila Nieves on 01/28/181936 Clobazam (ONFI) 10 MG TABLET 2 TAB PO QPM SEIZURES (Reported) Entered as Reported by Leonila Nieves on 01/28/18 193 Duloxetine HCl 60 MG CAPSULE. 1 CAP PO QPM UNKNOWN #90 (Reported) Entered as Reported by Barbi Hermosillo on 12/19/16 1411 Last Taken: 01/27/18 Fluoxetine HCl (Prozac) 10 MG CAPSULE 1 CAP PO QAM MENTAL HEALTH #30 ( Reported) Entered as Reported by Leonila Nieves on 01/28/18 193 L.acidoph,Paracasei, B.lactis (Probiotic) (Unknown Strength) CAPSULE (Unknown Dose) PO QAM PROBIOTIC (Reported) Entered as Reported by Leonila Nieves on 01/26/17 0607 Last Taken: Unknown Dose on 01/28/18 0900 Lamotrigine 100 MG TABLET 3 TAB PO BID SEIZURE #180 (Reported) Entered as Reported by Barbi Hermosillo on 12/19/16 1410 Last Taken: 01/28/18 0900 Multivitamin-Min/Iron/FA/Vit K (Multi-Day Plus Minerals Tablet) 18 MG IRON-400 MCG-25 MCG TABLET 1 TAB PO DAILY SUPPLEMENT (Reported) Entered as Reported by Leonila Nieves on 01/26/17 2256 Scheduled PRN Medications Clonazepam 1 MG TABLET 1 TAB PO BIDP PRN ANXIETY #60 (Reported) Entered as Reported by Barbi Hermosillo on 12/19/16 1409 Last Taken: 01/28/18 0900 Consequences of Psych Med Use: N/A Comments: N/A Past History Past Medical History Neurological: EPILEPSY EENT: NONE Cardiovascular: NONE Respiratory: NONE Gastrointestinal: NONE Hepatic: NONE Renal: NONE Musculoskeletal: NONE Psychiatric: depression Endocrine: NONE Blood Disorders: NONE Cancer(s): NONE 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 Childhood Family Constellation: Mother, father and two sisters Primary Childhood Caretakers: father, mother DCF Involvement? No Mother's Age (Current/): 81 Relationship w/Mother: She resides with her mother and helps to take cre of her. She states that her relationship with her mother is excellent. Father's Age (Current/): 72 () Relationship w/Father: She states that her relationship with her father was excellent before he . Any Sibling(s)? Yes Sibling's Gender(s)/Age(s): female Sibling 1:, female Sibling 2: Relationship w/Sibling(s): "Excellent." Relationship w/Friends: She states that she has wonderful friends, however lately has been hoping not to see them. Family Psych/Sub Abuse/Add Hx: None noted Other Comments: N/A Abuse/Trauma History Trauma History/Current Trauma: Denies Legal History Legal Guardian/Address/Phone: Self Current Legal Status: none Pending Court Dates: N/A Have you ever been arrested No Number of Arrests: 0 Hx of Juvenile Legal Charges? No Hx of Adult Legal Charges? 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 Weaknesses: The patient's symptoms have become increasingly worse, despite treatment. Physical Limitations (Interventions): She has Epilepsy and requires her medications to prevent seizures. Last Physical: Unknown History of Seizures? Yes (Epilepsy) Last Seizure: Unknown History of Blackouts? No ADL Limitations: The patient states that she has stopped having the motivation to shower. [place]/Social/Peer Relations She states that she ahs wonderful freinds, however has not wanted to see them. Meaningful Activities: She states that she does not find stephani in anything anymore. She states that her grandchildren are probably the only thing she has to live for. She states that she used to bake, however she can not even remember how to bake anymore. Childhood Yazdanism: Church Current Christian Affiliation: Church Is Spirituality Important to You? "Yes" Cultural/Ethnic Issues: None noted Are There Developmental Issues? No Psychiatric Treatment History Psych Treatment Inpatient Treatment Yes Outpatient Treatment Yes Location of Treatment [facility] and 1 IP admission in [place] in 2016. Reason for Treatment Suicide attempt, depression and anxiety Dates of Treatment 2016 was last IP treatment and she is current with [facility]. Response to Treatment She states that despite treatment that her symptoms are getting worse. Precipitating Factors: The precipitating factor is her of 32 years disclosing that he is crooks. Current Painting Machine Operator: Dr. Monterroso at [facility] Treatment of Prior Episodes: She was treated inpatient in [place]. Diagnosis: Unknown Psychodynamic Issues: Her of 32 years disclosed that he is crooks and they are . Risk Factors: chronic/serious med cond., high anxiety/distress, history of suicide atmpts, SA/MH hospitalized, lack of outcome concern, limited support Substance Use/Abuse History Drug Use/Abuse First Use N/A Last Used N/A How much used/taken N/A How often N/A For how long N/A Route of use N/A Have Had Periods of Sobriety? Yes (N/A) Explain: N/A Relapse History? No Explain: N/A Have You Ever Attended AA? No Do You Attend AA Currently? No Do You Have a Sponsor? No Other Community Resources Used: None noted Symptoms of Use: N/A Substance Abuse Treatment Substance Abuse Treatment Inpatient Treatment No Outpatient Treatment No Location of Treatment N/A Reason for Treatment N/A Dates of Treatment N/A Response to Treatment N/A Comments: The patient denies any current or history of drug or alcohol abuse. Sexual History Sexual Concerns: None noted Education History Highest Level of Education: high school/GED Highest Grade Completed: Graduated High School. 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 No. of Jobs in Last 5 Years: 0 Comments: N/A History Have You Been in The ? No (Pt. denies) If Yes, Explain: N/A Type of Discharge: N/A Date of Discharge: N/A Current Mental Status Mental Status Orientation: Person, Place, Situation Affect: Depressed, Flat, Sad Speech: WNL Neuro-vegetative: Anhedonia, Appetite Decreased, Concentration Poor, Helpless, Sleep Disturbance, Feeling worthless, shame, useless and hopeless. Appearance Appearance- Dress/Hygiene: The patient was sitting in bed, in hospital attire, neat clean and well groomed. Behaviors Thought Process: WNL Thought Content: Auditory Hallucinations, Visual Hallucinations, She states that she recently heard someone calling her name and believed that she saw someone standing behind her bed. Memory: Impaired (she states she has been forget) Insight: WNL SI/HI Risk Assessment Past Suicidal Ideation/Attempts Yes Current Suicidal Ideation/Att Yes Past Homicidal Ideation/Att: No Current Homicidal Ideation/Attempts No Degree of Intent: She reports one previous suicide attmept, in which she drank alcohol and took an OD in 2016. She states that she has been praying to God to take her to be with her father. She reports that she does not care and if she could make it easy, she would. Danger To: Self Gravely Disabled: N/A Risk Factors: Chronic/serious med cond, High Anxiety/Distress, SA/MH Hospitalization(s), Hx of suicide attempt(s), Lack of concern outcome Lethality Ratin - Conclusion and Recommendations for treatment - and discharge planning Summary: The patient presents with worsening symptoms of depression and anxiety. She has been feeling helpless, hopeless, worthless, useless and suicidal. She has been having suicidal ideations and has one previous suicide attempt. She has new onset +VH and +AH. The patient is agreeable to participate in treatment, however is not sure how she can be helped, as she is so hopeless.
[2018-01-28 20:59] VITALS: BP 113/78
[2018-01-29 07:44] VITALS: BP 110/77
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
[2018-01-29 12:12] VITALS: BP 122/71
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
[2018-01-29 16:15] VITALS: BP 131/66
[2018-01-29 19:49] VITALS: BP 109/66
[2018-01-30 07:55] VITALS: BP 122/78
--- NOTE | 2018-01-30 10:21 | CP SOUTH PROGRESS NOTE PSYCH ---
Psych (Inpt) Progress Note Progress Note Include the following elements, when applicable: Involvement in the active treatment of the patient with behavioral observations of the patient and the patient's response to the treatment. Review of the ongoing treatment process in the context of the treatment plan. Indication of how multi-disciplinary staff members are carrying out the treatment plan. Plans for future interventions and recommendations for revision of the treatment plan. Liaison with other physicians/providers. Progress Note: Pt reports that she has had multiple sz since clobazam was discontinued. She notes these leave her sedated and letharic with poor mood. Denies SI or HI. Otherwise mood has improved. Sleep is better than first night here. Current Medications Sig/Sara Start time Last Medication Dose Route Stop Time Status Admin Acetaminophen 650 MG Q4P PRN 01/29 1200 AC 01/30 PO 0806 Al Hydroxide/Mg 30 ML Q4-6 PRN PRN 01/29 1200 AC Hydroxide PO Clonazepam 1 MG 0800,01/29 AC 01/30 PO 02/05 195 0807 Duloxetine HCl 60 MG QPM 01/28 2359 AC 01/29 PO 2151 Fluoxetine HCl 20 MG DAILY 01/29 1000 AC 01/30 PO 0807 Lactobacillus 1 CAP DAILY 01/29 1000 AC 01/30 Acidophilus PO 0807 Lamotrigine 300 MG BID 01/28 2359 AC 01/30 PO 0807 Magnesium Hydroxide 30 ML AT BEDTIME NEED.. 01/29 1200 AC PO Multivitamins 1 TAB DAILY 01/29 1000 AC 01/30 PO 0807 Trazodone HCl 50 MG AT BEDTIME NEED.. 01/29 1200 AC PO Laboratory Tests 01/28 01/28 9726 1739 Chemistry Sodium (137 - 145 mmol/L) 140 Potassium (3.5 - 5.1 mmol/L) 3.9 Chloride (98 - 107 mmol/L) 101 Carbon Dioxide (22 - 30 mmol/L) 26 Anion Gap (5 - 16) 13 BUN (7 - 17 mg/dL) 12 Creatinine (0.5 - 1.0 mg/dL) 0.8 Estimated GFR (>60 ml/min) > 60 BUN/Creatinine Ratio (7 - 25 %) 15.0 Glucose (65 - 99 mg/dL) 92 Calcium (8.4 - 10.2 mg/dL) 9.9 Total Bilirubin (0.2 - 1.3 mg/dL) 0.4 AST (14 - 36 U/L) 24 ALT (9 - 52 U/L) 34 Alkaline Phosphatase (<127 U/L) 98 Total Protein (6.3 - 8.2 g/dL) 7.1 Albumin (3.5 - 5.0 g/dL) 4.4 Globulin (1.9 - 4.2 gm/dL) 2.7 Albumin/Globulin Ratio (1.1 - 2.2 %) 1.6 Hematology CBC w Diff NO MAN DIFF REQ WBC (4.8 - 10.8 /CUMM) 5.2 RBC (4.20 - 5.40 /CUMM) 4.38 Hgb (12.0 - 16.0 G/DL) 13.8 Hct (37 - 47 %) 40.5 MCV (81.0 - 99.0 FL) 92.5 MCH (27.0 - 31.0 PG) 31.5 H MCHC (33.0 - 37.0 G/DL) 34.1 RDW (11.5 - 14.5 %) 13.0 Plt Count (130 - 400 /CUMM) 264 MPV (7.4 - 10.4 FL) 7.8 Gran % (42.2 - 75.2 %) 59.5 Lymphocytes % (20.5 - 51.1 %) 30.9 Monocytes % (1.7 - 9.3 %) 7.1 Eosinophils % (0 - 5 %) 2.0 Basophils % (0.0 - 2.0 %) 0.5 Absolute Granulocytes (1.4 - 6.5 /CUMM) 3.1 Absolute Lymphocytes (1.2 - 3.4 /CUMM) 1.6 Absolute Monocytes (0.10 - 0.60 /CUMM) 0.4 Absolute Eosinophils (0.0 - 0.7 /CUMM) 0.1 Absolute Basophils (0.0 - 0.2 /CUMM) 0 Toxicology Urine Opiates Screen (>2000 NG/ML) < 100 Methadone Screen (>300 NG/ML) 42 Barbiturate Screen (>200 NG/ML) < 60 Ur Phencyclidine Scrn (>25 NG/ML) < 6.00 Amphetamines Screen (>1000 NG/ML) < 100 U Benzodiazepines Scrn (>200 NG/ML) 770 H Urine Cocaine Screen (>300 NG/ML) < 50 Urine Cannabis Screen (>50 NG/ML) < 5.00 Serum Alcohol (<10 MG/DL) < 10.0 Vital Signs Date Time Temp Pulse Resp B/P B/P Pulse O2 O2 Flow FiO2 Mean Ox Delivery Rate 01/30 0755 96.7 90 122/78 01/29 1949 98.2 96 109/66 01/29 1615 99 131/66 01/29 1212 87 122/71 MSE General appearance: good hygiene and grooming; Attitude: cooperative; Eye contact: appropriate; Movement: no psychomotor agitation or slowing; Speech: nl fluency, nl rate/rhythm, nl volume, nl prosody; Mood: "better I think" Affect: irritable, flat, appropriate, constricted, non-labile, congruent; Thought process: linear and goal-directed; Thought content: denied SI or HI, no paranoid ideation; Perception: denied hallucinations- auditory, visual, does not appear to be responding to internal stimuli; I/J: limited A/P: Pt with MDD and SI c/b fleeting AHs at times, with improved mood though continue concerns about sx d/o. - Neurology consult placed, spoke with Dr. Nassar, who plans to see pt later today; rec restart clobazam. Not on formulary and pt will have to bring home med in. Per med rec, 20mg Qhs dosing - Otherwise continue current medication regimen. - Encourage intergration into the milieu
[2018-01-30 12:09] VITALS: BP 115/71
--- NOTE | 2018-01-30 15:19 | Cons- Neurology ---
General Information and HPI Consulting Request Date of Consult: 01/30/18 Requested By: Olegario Lopez MD Reason for Consult: Evaluation seizure medication, need for Onfi Source of Information: patient, old records Exam Limitations: no limitations History of Present Illness: 57/F with medically intractable epilepsy since around 2005 followed at the [facility] has been doing well since about one year ago when Onfi was added in place of oxcarbazepine. Frequency of seizures has dropped to about one per month. I confirmed this by reviewing her chart on EP[facility] at [facility]. On admission she took her usual dose (onfi 15mg in AM and 20 mg in PM) but was taken off yesterday, either by oversight or because she is on two meds in the benzodiazepine class, Today reports breakthrough seizures, one episode of auditory hallucination ( heard 'good morning" at 1:30 AM) and is increasingly anxious about missing the medication Seizures are partial complex, never convulsive. They consist of a flushing or stare, brief unresponsive state, sometimes automatisms. Admitted for worsening depression, Hx of suicide attempt with AEDs and ETOH, occurred while on Keppra Allergies/Medications Allergies: Coded Allergies: levetiracetam (From [employer]) (Severe, +SI ATTEMPT 01/28/18) Sulfa (Sulfonamide Antibiotics) (UNKNOWN - RASH? 01/28/18) Home Med List: Clobazam (ONFI) 10 MG TABLET 1.5 TAB PO QAM SEIZURES (Reported) Clobazam (ONFI) 10 MG TABLET 2 TAB PO QPM SEIZURES (Reported) Clonazepam 1 MG TABLET 1 TAB PO BIDP PRN ANXIETY (Reported) Duloxetine HCl 60 MG CAPSULE.DR 1 CAP PO QPM UNKNOWN (Reported) L.acidoph,Paracasei, B.lactis (Probiotic) (Unknown Strength) CAPSULE (Unknown Dose) PO QAM PROBIOTIC (Reported) Lamotrigine 100 MG TABLET 3 TAB PO BID SEIZURE (Reported) Multivitamin-Min/Iron/FA/Vit K (Multi-Day Plus Minerals Tablet) 18 MG IRON-400 MCG-25 MCG TABLET 1 TAB PO DAILY SUPPLEMENT (Reported) Current Medications: Current Medications Sig/Sara Start time Last Medication Dose Route Stop Time Status Admin Acetaminophen 650 MG Q4P PRN 01/29 1200 AC 01/30 PO 0806 Al Hydroxide/Mg 30 ML Q4-6 PRN PRN 01/29 1200 AC Hydroxide PO Clonazepam 1 MG 0800,01/29 AC 01/30 PO 02/05 Duloxetine HCl 60 MG QPM 01/28 2359 AC 01/29 PO 215 Fluoxetine HCl 20 MG DAILY 01/29 1000 AC 01/30 PO 0807 Lactobacillus 1 CAP DAILY 01/29 1000 AC 01/30 Acidophilus PO 0807 Lamotrigine 300 MG BID 01/28 2359 AC 01/30 PO 0807 Magnesium Hydroxide 30 ML AT BEDTIME NEED.. 01/29 1200 AC PO Multivitamins 1 TAB DAILY 01/29 1000 AC 01/30 PO 0807 Trazodone HCl 50 MG AT BEDTIME NEED.. 01/29 1200 AC PO Review of Systems Review of Systems: On ROS, tremor has increased considerably today. Feels generally ill, off balance, blurry vision, anxious. 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 Home ETOH Use: occasional use Illicit Drug Use: denies illicit drug use Employment History Employment: Disability Profession/Employer: She was a [employer], for the majority of her life. Exam & Diagnostic Data Vital Signs and I&O Vital Signs Date Time Temp Pulse Resp B/P B/P Pulse O2 O2 Flow FiO2 Mean Ox Delivery Rate 01/30 1209 85 115/71 01/30 0755 96.7 90 122/78 01/29 1949 98.2 96 109/66 01/29 1615 99 131/66 Physical Exam: Alert, anxious, looks well medically language and speech OK [id number] EOMI no nystagmus CN [id number] normal motor exam: normal power and tone DTRs normal Sensory normal coordination: mild ataxia NFN and intention tremor, rapid bilat, low amplitude gait; mildly off balance, [place]berg OK Last 48 Hours of Lab Results: Laboratory Tests 01/28 01/28 1756 1739 Chemistry Sodium (137 - 145 mmol/L) 140 Potassium (3.5 - 5.1 mmol/L) 3.9 Chloride (98 - 107 mmol/L) 101 Carbon Dioxide (22 - 30 mmol/L) 26 Anion Gap (5 - 16) 13 BUN (7 - 17 mg/dL) 12 Creatinine (0.5 - 1.0 mg/dL) 0.8 Estimated GFR (>60 ml/min) > 60 BUN/Creatinine Ratio (7 - 25 %) 15.0 Glucose (65 - 99 mg/dL) 92 Calcium (8.4 - 10.2 mg/dL) 9.9 Total Bilirubin (0.2 - 1.3 mg/dL) 0.4 AST (14 - 36 U/L) 24 ALT (9 - 52 U/L) 34 Alkaline Phosphatase (<127 U/L) 98 Total Protein (6.3 - 8.2 g/dL) 7.1 Albumin (3.5 - 5.0 g/dL) 4.4 Globulin (1.9 - 4.2 gm/dL) 2.7 Albumin/Globulin Ratio (1.1 - 2.2 %) 1.6 Hematology CBC w Diff NO MAN DIFF REQ WBC (4.8 - 10.8 /CUMM) 5.2 RBC (4.20 - 5.40 /CUMM) 4.38 Hgb (12.0 - 16.0 G/DL) 13.8 Hct (37 - 47 %) 40.5 MCV (81.0 - 99.0 FL) 92.5 MCH (27.0 - 31.0 PG) 31.5 H MCHC (33.0 - 37.0 G/DL) 34.1 RDW (11.5 - 14.5 %) 13.0 Plt Count (130 - 400 /CUMM) 264 MPV (7.4 - 10.4 FL) 7.8 Gran % (42.2 - 75.2 %) 59.5 Lymphocytes % (20.5 - 51.1 %) 30.9 Monocytes % (1.7 - 9.3 %) 7.1 Eosinophils % (0 - 5 %) 2.0 Basophils % (0.0 - 2.0 %) 0.5 Absolute Granulocytes (1.4 - 6.5 /CUMM) 3.1 Absolute Lymphocytes (1.2 - 3.4 /CUMM) 1.6 Absolute Monocytes (0.10 - 0.60 /CUMM) 0.4 Absolute Eosinophils (0.0 - 0.7 /CUMM) 0.1 Absolute Basophils (0.0 - 0.2 /CUMM) 0 Toxicology Urine Opiates Screen (>2000 NG/ML) < 100 Methadone Screen (>300 NG/ML) 42 Barbiturate Screen (>200 NG/ML) < 60 Ur Phencyclidine Scrn (>25 NG/ML) < 6.00 Amphetamines Screen (>1000 NG/ML) < 100 U Benzodiazepines Scrn (>200 NG/ML) 770 H Urine Cocaine Screen (>300 NG/ML) < 50 Urine Cannabis Screen (>50 NG/ML) < 5.00 Serum Alcohol (<10 MG/DL) < 10.0 Imaging/Other Studies: BRAIN MRI [facility]: areas of gliosis, bilateral hemispheres, vermis EEG monitoring [place]: bilateral independent seizures of temporal lobe onset Assessment/Plan Assessment: Intractable epilepsy under very good control (for her) since addition of ONFI about 1 year ago Significant risk of withdrawal if withheld suddenly Also, discontinuation has increased her anxiety and is compromising trust in providers here on the unit, as she is aware of the risk Recommendations: Resume ONFI NESTOR at her pre-hospital dose 15 mg qAM and 20 mg QPM (from home, not on hosp formulary) continue Klonopin 1 mg BID continue Lamotirgine 300mg BID call me if questions or problems obtaining the medication [phone] Consult Acknowledgment - Thank you for your consult request.
[2018-01-30 15:57] VITALS: BP 132/77
--- NOTE | 2018-01-30 15:58 | History & Physical ---
General Information and HPI MD Statement: I have seen and personally examined JUANIS MICHEL and documented this H&P. The patient is a 57 year old F who presented with a patient stated chief complaint of suicidal ideations. Source of Information: patient, old records Exam Limitations: no limitations History of Present Illness: 57-year-old female brought in by ambulance due to suicidal ideations and she feels depressed and suicidal. Has a depressed mood flat affect so anxious at times. Feels helpless hopeless worthless less red poor appetite, lost some weight for all those reasons is admitted for evaluation and treatment. Allergies/Medications Allergies: Coded Allergies: levetiracetam (From [place]) (Severe, +SI ATTEMPT 01/28/18) Sulfa (Sulfonamide Antibiotics) (UNKNOWN - RASH? 01/28/18) Home Med list Clobazam (ONFI) 10 MG TABLET 1.5 TAB PO QAM SEIZURES (Reported) Clobazam (ONFI) 10 MG TABLET 2 TAB PO QPM SEIZURES (Reported) Clonazepam 1 MG TABLET 1 TAB PO BIDP PRN ANXIETY (Reported) Duloxetine HCl 60 MG CAPSULE.DR 1 CAP PO QPM UNKNOWN (Reported) L.acidoph,Paracasei, B.lactis (Probiotic) (Unknown Strength) CAPSULE (Unknown Dose) PO QAM PROBIOTIC (Reported) Lamotrigine 100 MG TABLET 3 TAB PO BID SEIZURE (Reported) Multivitamin-Min/Iron/FA/Vit K (Multi-Day Plus Minerals Tablet) 18 MG IRON-400 MCG-25 MCG TABLET 1 TAB PO DAILY SUPPLEMENT (Reported) Compliance With Home Meds: GOOD Past History Travel History Traveled to [place] past 21 day No Medical History Neurological: EPILEPSY EENT: NONE Cardiovascular: NONE Respiratory: NONE Gastrointestinal: NONE Hepatic: NONE Renal: NONE Musculoskeletal: NONE Psychiatric: depression Endocrine: NONE Blood Disorders: NONE Cancer(s): 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 Review of Systems Review of Systems Constitutional: Reports: see HPI. Exam & Diagnostic Data Last 24 Hrs of Vital Signs/I&O Vital Signs Date Time Temp Pulse Resp B/P B/P Pulse O2 O2 Flow FiO2 Mean Ox Delivery Rate 01/30 1209 85 115/71 01/30 0755 96.7 90 122/78 01/29 1949 98.2 96 109/66 01/29 1615 99 131/66 Physical Exam General Appearance Alert, Oriented X3, Cooperative, No Acute Distress Skin No Rashes HEENT PERRLA, EOMI, Mucous Membr. moist/pink Neck Supple, No JVD, +2 Carotid Pulse wo Bruit, No LAD Lymphatic Axillary nl, Cervical nl Cardiovascular Regular Rate, No Murmurs Lungs Clear to Auscultation, Normal Air Movement Abdomen Normal Bowel Sounds, Soft, No Tenderness, No Hepatospenomegaly Neurological Exam Findings: Normal Gait, Normal Speech, Strength at 5/5 X4 Ext, Normal Tone, Sensation Intact, Cranial Nerves 3-12 NL, Reflexes 2+ Cranial Nerves II through XII: Intact Extremities No Cyanosis, No Edema, Normal Pulses, No Tenderness/Swelling Vascular Normal Pulses, Pulses Symmetrical Last 24 Hrs of Labs/Ayush: Laboratory Tests 01/28/18 1756: Urine Opiates Screen < 100, Methadone Screen 42, Barbiturate Screen < 60, Ur Phencyclidine Scrn < 6.00, Amphetamines Screen < 100, U Benzodiazepines Scrn 770 H, Urine Cocaine Screen < 50, Urine Cannabis Screen < 5.00 01/28/18 1739: Anion Gap 13, Estimated GFR > 60, BUN/Creatinine Ratio 15.0, Glucose 92, Calcium 9.9, Total Bilirubin 0.4, AST 24, ALT 34, Alkaline Phosphatase 98, Total Protein 7.1, Albumin 4.4, Globulin 2.7, Albumin/Globulin Ratio 1.6, CBC w Diff NO MAN DIFF REQ, RBC 4.38, MCV 92.5, MCH 31.5 H, MCHC 34.1, RDW 13.0, MPV 7.8, Gran % 59.5, Lymphocytes % 30.9, Monocytes % 7.1, Eosinophils % 2.0, Basophils % 0.5, Absolute Granulocytes 3.1, Absolute Lymphocytes 1.6, Absolute Monocytes 0.4, Absolute Eosinophils 0.1, Absolute Basophils 0, Serum Alcohol < 10.0 Assessment/Plan As Ranked By This Provider Problem List: 1. Major depression Miscellaneous Miscellaneous Documentation Attending Case Discussed With: John SANTANA,Olegario Primary Care Physician: Paula Velarde DO Patient sees these Specialists Psychiatry Level of Patient Care: TERESA Akhtar Consults Needed: Consulting Specialty: Psychiatry Consulting Physician: Dr Allan Reason for Consult: depression with suicidal ideations
[2018-01-30 19:50] VITALS: BP 118/78
[2018-01-30 23:18] VITALS: BP 143/81
[2018-01-31 06:58] VITALS: BP 120/82
--- NOTE | 2018-01-31 10:27 | CP SOUTH PROGRESS NOTE PSYCH ---
See Addendum Psych (Inpt) Progress Note Progress Note Include the following elements, when applicable: Involvement in the active treatment of the patient with behavioral observations of the patient and the patient's response to the treatment. Review of the ongoing treatment process in the context of the treatment plan. Indication of how multi-disciplinary staff members are carrying out the treatment plan. Plans for future interventions and recommendations for revision of the treatment plan. Liaison with other physicians/providers. Progress Note: Pt noted to be confused overnight. She admitted to lowering herself to the ground/fall on three occasions. This morning, clobazam held and reduced dose to 10mg BID. Pt initally refused to take it and responded to a very limited degree to redirection. Eventually took as needed medication. Pt requested to be transferred to neurology service several times. She does not feel that she needs any psychiatric treatment at this time. Explained to pt several times, the concerns leading to hospitalizations and protocol for court requested discharge. Pt did not recall meeting with this provider yesterday and admantly denied that we meet yesterday. Pt denies SI or HI. Current Medications Sig/Sara Start time Last Medication Dose Route Stop Time Status Admin Acetaminophen 650 MG Q4P PRN 01/29 1200 AC 01/30 PO 0806 Al Hydroxide/Mg 30 ML Q4-6 PRN PRN 01/29 1200 AC Hydroxide PO Clonazepam 1 MG 0800,01/29 AC 01/31 PO 02/05 195 0851 Duloxetine HCl 60 MG QPM 01/28 2359 AC 01/30 PO 2201 Fluoxetine HCl 20 MG DAILY 01/29 1000 AC 01/31 PO 0850 Lactobacillus 1 CAP DAILY 01/29 1000 AC 01/31 Acidophilus PO 0849 Lamotrigine 300 MG BID 01/28 235 AC 01/31 PO 0849 Magnesium Hydroxide 30 ML AT BEDTIME NEED.. 01/29 1200 AC PO Multivitamins 1 TAB DAILY 01/29 1000 AC 01/31 PO 0850 Trazodone HCl 50 MG AT BEDTIME NEED.. 01/29 1200 AC PO Laboratory Tests 01/28 01/28 1756 1739 Chemistry Sodium (137 - 145 mmol/L) 140 Potassium (3.5 - 5.1 mmol/L) 3.9 Chloride (98 - 107 mmol/L) 101 Carbon Dioxide (22 - 30 mmol/L) 26 Anion Gap (5 - 16) 13 BUN (7 - 17 mg/dL) 12 Creatinine (0.5 - 1.0 mg/dL) 0.8 Estimated GFR (>60 ml/min) > 60 BUN/Creatinine Ratio (7 - 25 %) 15.0 Glucose (65 - 99 mg/dL) 92 Calcium (8.4 - 10.2 mg/dL) 9.9 Total Bilirubin (0.2 - 1.3 mg/dL) 0.4 AST (14 - 36 U/L) 24 ALT (9 - 52 U/L) 34 Alkaline Phosphatase (<127 U/L) 98 Total Protein (6.3 - 8.2 g/dL) 7.1 Albumin (3.5 - 5.0 g/dL) 4.4 Globulin (1.9 - 4.2 gm/dL) 2.7 Albumin/Globulin Ratio (1.1 - 2.2 %) 1.6 Hematology CBC w Diff NO MAN DIFF REQ WBC (4.8 - 10.8 /CUMM) 5.2 RBC (4.20 - 5.40 /CUMM) 4.38 Hgb (12.0 - 16.0 G/DL) 13.8 Hct (37 - 47 %) 40.5 MCV (81.0 - 99.0 FL) 92.5 MCH (27.0 - 31.0 PG) 31.5 H MCHC (33.0 - 37.0 G/DL) 34.1 RDW (11.5 - 14.5 %) 13.0 Plt Count (130 - 400 /CUMM) 264 MPV (7.4 - 10.4 FL) 7.8 Gran % (42.2 - 75.2 %) 59.5 Lymphocytes % (20.5 - 51.1 %) 30.9 Monocytes % (1.7 - 9.3 %) 7.1 Eosinophils % (0 - 5 %) 2.0 Basophils % (0.0 - 2.0 %) 0.5 Absolute Granulocytes (1.4 - 6.5 /CUMM) 3.1 Absolute Lymphocytes (1.2 - 3.4 /CUMM) 1.6 Absolute Monocytes (0.10 - 0.60 /CUMM) 0.4 Absolute Eosinophils (0.0 - 0.7 /CUMM) 0.1 Absolute Basophils (0.0 - 0.2 /CUMM) 0 Toxicology Urine Opiates Screen (>2000 NG/ML) < 100 Methadone Screen (>300 NG/ML) 42 Barbiturate Screen (>200 NG/ML) < 60 Ur Phencyclidine Scrn (>25 NG/ML) < 6.00 Amphetamines Screen (>1000 NG/ML) < 100 U Benzodiazepines Scrn (>200 NG/ML) 770 H Urine Cocaine Screen (>300 NG/ML) < 50 Urine Cannabis Screen (>50 NG/ML) < 5.00 Serum Alcohol (<10 MG/DL) < 10.0 Vital Signs Date Time Temp Pulse Resp B/P B/P Pulse O2 O2 Flow FiO2 Mean Ox Delivery Rate 01/31 0658 97.2 85 120/82 01/30 2318 89 143/81 01/30 1950 98.8 77 118/78 01/30 1557 80 132/77 01/30 1209 85 115/71 MSE General appearance: good hygiene and grooming; Attitude: cooperative; Eye contact: appropriate; Movement: no psychomotor agitation or slowing; Speech: nl fluency, nl rate/rhythm, nl volume, nl prosody, perseverative; Mood: "terrible" Affect: extremely irritable, flat, appropriate, constricted, non-labile, congruent; Thought process: linear and goal-directed; Thought content: denied SI or HI, no paranoid ideation; Perception: denied hallucinations- auditory, visual, does not appear to be responding to internal stimuli; I/J: limited A/P: Pt with MDD and SI c/b fleeting AHs at times, with improved mood though continue concerns about sx d/o. - Neurology consult recs continue the sz meds; overnight pt seems confused per multiple staff members and unsteady s/p administration of medication and reduced dose to 10mg BID which can be titrated upwards over the next few days - Encourage intergration into the milieu
[2018-01-31 12:09] VITALS: BP 110/71
[2018-01-31 15:25] VITALS: BP 142/74
[2018-01-31 20:01] VITALS: BP 144/85
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
[2018-02-01 08:23] VITALS: BP 130/66
[2018-02-01 12:21] VITALS: BP 131/90
--- NOTE | 2018-02-01 16:02 | IP INCIDENTAL NOTE PSYCH ---
Incidental Note Notation: I met with the patient this afternoon because she had grievances about her seizure medication and seemed not to remenber a converstaion I had with her about switching from Onfi to clonazepam and that clonazepam 2 mg per day ie equivalent to 40 mg Onfi per day I placed a phone conversation to her neurologist, Dr. Jorge and spoke to his nurse to check if his intention was to have her on both Klonopin and Onfi. His nurse indicated that she would ask Dr. Jorge and one of them will call me back. I gave the patient in writing the plan to cross- titrate from Klonopin to Clobazam (Onfi): Clonazepam will go down by 0.5 mg and Onfi will go up by 20 mg as fopattiw: 1) Reduce Clonazepam 0.5 mg in AM and 1 mg at bedtime 2) Increase Onfi to 20 mg in AM and 40 mg at bedtime
--- NOTE | 2018-02-01 16:06 | SOCIAL WORKER PROG NOTE PSYCH ---
Social Work Progress Note Progress Note This appeals writer met with patient. Patient expressed disatisfaction with regard to not receiving her seizure medications. She stated that she has had [address] [facility]. Patient stated that her psychiatrist, Dr. Monterroso, referred to to [facility]. She stated that Dr. Monterroso described [facility] as a retreat; a nice relaxing environment with salt water baths and beautiful music. Patient stated that she was seeking treatment for her PTSD and feels that the confusion with her medications has gotten in the way of what she sought treatment for. Upon patient's interest in meeting with the patient advocate, this appeals writer called Monique Lopez, patient advocat/patient safety, who stated that she would meet with her this afternoon. Patient was informed. Patient was also agreeable to a family meeting with her mother and sisters. Patient was unsure if her sisters would be able to attend due to their work schedule. This appeals writer contact the patient's mother by phone and a family meeting has been scheduled for 02/03/18 at 2:30pm. Patient's mother stated that she would inform the patient 's sisters of the meeting, however, was unsure if they could attend.
[2018-02-01 16:13] VITALS: BP 124/67
--- NOTE | 2018-02-01 16:51 | SOCIAL WORKER PROG NOTE PSYCH ---
Social Work Progress Note Progress Note Completed [facility] review. Check [facility] for next review date.
[2018-02-01 19:53] VITALS: BP 115/80
[2018-02-02 07:56] VITALS: BP 112/75
--- NOTE | 2018-02-02 09:11 | CP SOUTH PROGRESS NOTE PSYCH ---
Psych (Inpt) Progress Note Progress Note Vital Signs: Blood pressure 112/75 mmHg, pulse 88 bpm, temperature 97.1F The patient's progress and treatment plan were discussed in the treatment team meeting this morning Mental status examination: The patient was alert and oriented to time, place, and person. The patient is circumstantial and tangential but redirectable. She was redirected to the circumstances that led to her psychiatric admission she acknowledged that she was struggling and that there were some passive wishes of . She reported that she has not been feeling this way since she has been on the inpatient unit. She denied any thoughts of suicide or wishing . She denied any violent thoughts or thoughts of homicide. She reported that she is willing to do the intensive outpatient program. She is still using a walker and I told her that I would be asking for occupational therapist/physical therapist to evaluate whether she needs the walker or not The patient reported that she slept reasonably okay last night. The patient acknowledges that there is some daytime sedation in the morning. She however was not slurring her words and did not look oversedated during the interview I did receive a call back from Dr. Salazar's office via his nurse indicating his recommendations as far as Lamictal and Onfi and indicated that the Klonopin titration should be left to the psychiatrist The patient acknowledge some recent episode of overtaking the medication and mixing it with wine when she was in [place]. I was not clear on the timeline she made it sound as if this was a recent episode. She denied that her intention was to and she reported that she just wanted to sleep. The patient denied thoughts of suicide today, she was alert and she was oriented to time place and person. Her speech continues to be circular but not pressured She denied hallucinations, she denied feeling paranoid, and there were no delusions during the interview Assessment: 57-year-old white female with depressive disorder history of complex partial seizures who was admitted yesterday at the suggestion of Yessica Monterroso MD because of the severity of her depressive symptoms and passive thoughts of wishing Diagnoses: Major depressive disorder, recurrent Rule out neurocognitive disorder due to TBI/seizure disorder Seizure disorder Treatment Plan: Continue clonazepam 0.5 mg in AM and 1 mg at bedtime Continue clobazam 20 mg AM and 40 mg at bedtime Continue Cymbalta 30 mg daily Continue Prozac 20 mg daily Occupational Therapy/physical therapy reevaluation to see if the patient continues to need a walker or not
[2018-02-02 12:25] VITALS: BP 125/68
[2018-02-02 15:44] VITALS: BP 122/74
--- NOTE | 2018-02-02 17:27 | SOCIAL WORKER PROG NOTE PSYCH ---
Social Work Progress Note Progress Note This newspaper writer met with patient. She reported some improvement with physical health such as feeling steadier on her feet. Patient stated that she is not feeling 100% and would like to show more improvement (be able to walk without a walker) before discharging. Patient described her mood as "fine." She denied SI/HI/AH/VH. Patient maintains agreeable to [facility] and an intake will be scheduled once the discharge date is determined. Patient stated that she is somewhat anxious about the family meeting, however, looking forward to it ( tomorrow at 2:30pm).
[2018-02-02 19:58] VITALS: BP 118/76
[2018-02-03 08:06] VITALS: BP 120/88
--- NOTE | 2018-02-03 09:05 | CP SOUTH PROGRESS NOTE PSYCH ---
Psych (Inpt) Progress Note Progress Note Vital Signs Date Time Temp Pulse Resp B/P B/P Pulse O2 O2 Flow FiO2 Mean Ox Delivery Rate 02/03 0806 96.9 82 120/88 02/02 1958 98.4 83 118/76 02/02 1544 85 122/74 04 1225 87 125/68 The patient's progress and treatment plan were discussed in the treatment team meeting this morning Mental status examination: The patient was alert and oriented to time, place, and person. The patient is focused on the issue of being taken off Onfi last Thursday and missing 3 doses She reported that she has not been wishing or thinking of suicide She denied violent thoughts or thoughts of homicide. She reported that she is willing to do the intensive outpatient program. The patient reported that she slept reasonably okay last night but feels that 40 mg Onfi at bedtime is too much (makes her feel dizzy) Lavonne was not slurring her words and did not look oversedated during the interview The patient denied thoughts of suicide today, she was alert and she was oriented to time place and person. The patient was more focused today and there did not seem to be any significant issue with her memory (except for blocking on the name of her group social worker) She denied hallucinations, she denied feeling paranoid, and there were no delusions during the interview Assessment: 57-year-old / white female with depressive disorder history of complex partial seizures who was admitted because of the severity of her depressive symptoms and passive thoughts of wishing . She no longer feels hopeless or wishes but is reporting unsteady gait Diagnoses: Major depressive disorder, recurrent Rule out neurocognitive disorder due to TBI/seizure disorder Seizure disorder (complex Partial seizures) Treatment Plan: Because she finds 20 mg Onfi more sedating than 0.5 mg clonazepam, we will: Change clonazepam back to 1 mg in AM and 1 mg at bedtime Changes clobazam back to 15 mg AM and 20 mg at bedtime Continue Cymbalta 30 mg daily Continue Prozac 20 mg daily Family meeting this afternoon and possible discharge tomorrow Continue Cymbalta 30 mg daily Continue Prozac 20 mg daily Occupational Therapy/physical therapy reevaluation to see if the patient continues to need a walker or not
[2018-02-03 12:02] VITALS: BP 126/77
--- NOTE | 2018-02-03 15:17 | SOCIAL WORKER PROG NOTE PSYCH ---
Social Work Progress Note Progress Note This director underwriter sales, Dr. Lopez met with the patient. Discharge is scheduled for tomorrow. Patient stated that she will schedule an appointment with her Neurologist and that this director underwriter sales does not need to schedule the appointment. Dr. Lopez also explained that he spoke with the nurse at Dr. Jorge's office yesterday. Dr. Lopez, this director underwriter sales and patient met with her mother and two sisters. Treatment and discharge were discussed. They were informed that pateint is scheduled to discharge tomorrow with a referral to [facility].
[2018-02-03 15:51] VITALS: BP 126/78
[2018-02-03 19:59] VITALS: BP 116/81
[2018-02-04 07:41] VITALS: BP 112/54
[2018-02-04] MEDS ORDERED: FLUOXETINE HCL20 M2 PO (10:02)
[2018-02-04] MEDS ORDERED: CYMBALTA30 M1 PO (10:02)
--- NOTE | 2018-02-04 10:03 | Patient Discharge Instructions ---
Psych Discharge Inst General Discharge Information Reason for Admission: feeling overwhelmed Psy Discharge Primary Diag+ MDD, recurrent Psy Discharge Secondary Diag+ Neurpcognitive disorder Summary Tests/Major Procedures The patient did not have any significant abnormalities in her laboratory blood work, urine toxicology was only positive for benzodiazepines Studies Pending at DC: None Patient Instructions Contact Information Your Psychiatrist on [facility] was John SANTANA,Olegario * If you are experiencing an emergency related to this hospitalization, please call [phone] to contact the treating psychiatrist or the psychiatrist-on- call. * To Request a copy of your medical records, please contact the Medical Records Department at [phone]. * To request results of studies pending at the time of discharge, please call [phone]. * Continue your Medications until directed to stop by your Healthcare provider. General Medication Information Please continue to take your new medications and your continued home medications , unless otherwise indicated on your discharge medication list, or unless directed by your MD or ULTRASONIC CLEANER to stop them. Special Instructions Diet Regular Activity As Tolerated - Tobacco Use Treatment Offered Post DC Medications Offered: Not Applicable Post DC Tobacco Treatment Plan: Not Applicable - EtOH/Drug Use D/O Treatment Offered Post DC Medications Offered: NA-No EtOH/Drug Use D/O Post DC EtOH/SubAbuse [place] Plan: NA-No EtOH/Drug Use D/O Metabolic Screening ([X]) Not Applicable, patient not on a neuroleptic. Advance Directives Does the Patient have Medical Advance Directives No/Refused further info Does Pt have Psychiatric Advance Directives? No/Refused further info Does Patient have a Designated Surrogate Decision Maker: No Information About Psychiatric Advance Directives Provided? Refused Discharge Plan Post Hospital Treatment Plan: IOP
--- NOTE | 2018-02-04 10:47 | CP SOUTH PROGRESS NOTE PSYCH ---
Psych (Inpt) Progress Note Progress Note Vital Signs Date Time Temp Pulse B/P B/P Pulse O2 O2 Flow FiO2 02/04 0741 96.9 90 112/54 02/03 1959 98.9 91 116/81 02/03 1551 77 126/78 The patient's progress and treatment plan were discussed in the treatment team meeting this morning Mental status examination: The patient reported that she slept well, she continues to complain that she is not steady on her feet and was using a walker. She was alert and oriented to time, place, and person. She reported that she is no longer feeling hopeless and no longer wishing She denied thinking of suicide She denied violent thoughts or thoughts of homicide. She reported that she is willing to do the intensive outpatient program. The patient was not slurring her words and did not look oversedated during the interview The patient denied hallucinations The patient was more focused today and there did not seem to be any significant issue with her memory (except for blocking on the name of her manager social responsibility) She denied feeling paranoid, and there were no delusions during the interview Assessment: 57-year-old / white female with depressive disorder history of complex partial seizures who was admitted because of the severity of her depressive symptoms and passive thoughts of wishing . She no longer feels hopeless or wishes but is reporting unsteady gait. The family meeting the patient's sister reported that the patient has been saying that she is feeling dizzy for very long time. I have a suspicion with patients investment in "sick role" Diagnoses: Major depressive disorder, recurrent Rule out neurocognitive disorder due to TBI/seizure disorder Seizure disorder (complex Partial seizures) Treatment Plan: Discharge directly to her intensive outpatient intake appointment across the street and then home afterwards. Her prescriptions were sent electronically to the [facility] on [address]
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
[2018-02-04 11:59] VITALS: BP 120/77
--- NOTE | 2018-02-04 18:13 | SOCIAL WORKER PROG NOTE PSYCH ---
Social Work Progress Note Progress Note This check writer salesperson met with patient. She described her mood as "good" and looking forward to attending IOP. She denied SI/HI/AH/VH. Patient stated that she will schedule an appointment with her neurologist and requested that the discharge summary is sent to that provider. This request was relayed to Dr. Lopez. Patient identified a safety plan in which she would "call my daughter." She was informed that she would be provided with crisis numbers and warm lines upon discharge, which she was agreeable to utilizing. This check writer salesperson spoke with Misty at Dr. Velarde's office regarding physical therapy. Misty stated that Dr. Velarde will review the case and contact the patient with a referral or request to schedule an appointment in order to make the referral. As patient had already left for the IOP intake, this check writer salesperson spoke with Kerry at [facility] would relay the message to the patient. Faxed Referral(s) Referred To: [facility] Transition of Care Documents sent: Health Summary, transfer note Faxed to: [facility] Fax #: [phone] Faxed by: Roshni Chapman LCSW Date faxed: 02/04/18 Time Faxed: [phone]
--- NOTE | 2018-02-05 12:47 | SOCIAL WORKER PROG NOTE PSYCH ---
Social Work Progress Note Progress Note This sql report writer received a call from Lavonne Oconnor ([phone]) reporting the following complaints: 1. She would like to provide her with a walker as she was not provided one upon discharge. 2. She is sore on the right side of the right leg from the buttocks to the mid calf. 3. She was not provided with a walker until after she fell during the [facility] admission. 4. She is missing medications that she had upon admission to the hospital, but were not returned to her at discharge. Patient requested that this sql report writer document the complaints. This sql report writer repeated them back to her to ensure understanding. Initially, patient was not interested in speaking with patient safety/advocate. This sql report writer explained to the patient that complaints are addressed through patient safety/patient advocate, to which patient responded that she would be willing to discuss it with them. This sql report writer obtained approval from the patient to forward the complaint and provide patient safety/patient advocate with the patient's phone number. Patient agreed. Patient was also agreeable to this sql report writer relaying the complaint/concerns to Maira Bruno and this sql report writer's timber supervisor, Qian Norton.
--- NOTE | 2018-02-05 14:59 | IP INCIDENTAL NOTE PSYCH ---
Incidental Note Notation: Olegario Lopez MD [facility] [address] [place] [address] February 05, 2018 Dr. Paula Velarde, DO [address] [place] [address] Via RE: Ms. Lavonne OCONNOR (: [phone]) Dear Dr. Velarde, I would like your help with the continuity of care of Ms. Lavonne Oconnor for the following reasons: 1) Pt. was told that the prescription I gave her upon discharge (yesterday) for a Walker was not honored because I am a psychiatrist and that it should come for her primary care physician 2) The same thing regarding my referral to physical therapy to evaluate steadiness of gait and when can she be off the walker precaution, I was told by PT that I could not do the referral as a psychiatrist and that it has to come from her PCP. Your help in the above matters will be greatly appreciated My regards, Olegario Lopez MD
== END 2018-02-04 13:33 | DRG 751 ==
LOC: ERH 16:48 → ERHI 19:10 → CP SOUTH 19:10 → EDBEDREQ 20:06 → ENTRNSPT 20:17 → CP SOUTH 20:51 → CMPTRNSPT 20:56 → CP SOUTH 01-29 09:36
PROVIDERS: Physician Assistant Medical
DX: F33.9 Major depressive disorder, recurrent, unspecified (principal); R41.9 Unspecified symptoms and signs involving cognitive functions and awareness
CPT/HCPCS: 80307; 97116-GO; 97161-GP; 97530-GO; G0480